=== PATIENT | female | born 1960 | race Caucasian/White ===

== ENCOUNTER 2016-09-20 17:07 | Emergency (ER) | payer OTHER ==
[~2016-09-20] VITALS: Ht 160 cm; Wt 74.8 kg
--- NOTE | 2016-09-20 19:30 | ED UPPER/LOWER EXTREMITY COMPL ---
History of Present Illness General Chief Complaint: General Adult Stated Complaint: PAIN L FOOT,H/O MS,SENT BY RODRIGO Source: patient Exam Limitations: no limitations Vital Signs & Intake/Output Vital Signs & Intake/Output Vital Signs Date Time Temp Pulse Resp B/P Pulse O2 O2 Flow FiO2 Ox Delivery Rate 09/203 96.9 61 20 141/67 92 Room Air 09/20 2057 96 09/20 2057 97.6 69 20 134/65 96 Room Air 09/20 1715 98.4 82 20 145/85 96 Room Air ED Intake and Output 09/21 0000 09/20 1200 Intake Total 1000 Output Total Balance 1000 Intake, IV 1000 Patient 165 lb Weight Allergies Coded Allergies: Sulfa (Sulfonamide Antibiotics) (Mild, RASH 09/20/16) Reconcile Medications Amantadine HCl (Amantadine) 100 MG CAPSULE 1 CAP PO BID FATIGUE (Reported) Ascorbic Acid (Vitamin C) 1,000 MG TABLET 1 TAB PO DAILY SUPPLEMENT (Reported ) Baclofen 10 MG TABLET 1 TAB PO 4XDAILY MUSCLE RELAXER (Reported) Biotin (Hard Nails) 2,500 MCG CAPSULE 5,000 MCG PO DAILY SUPPLEMENT (Reported ) Calcium Carb/Magnesium Hydrox (Gnp Antacid Chewable Tablet) (Unknown Strength) TAB.CHEW (Unknown Dose) PO BID SUPPLEMENT (Reported) Carbamazepine (Tegretol) 200 MG TABLET 1 TAB PO 5XDAILY PAIN (Reported) Cholecalciferol (Vitamin D3) (Vitamin D) 5,000 UNIT TABLET 1 TAB PO Friday SUPPLEMENT (Reported) Dimethyl Fumarate (Tecfidera) 240 MG CAPSULE.DR 1 CAP PO BID MS (Reported) Duloxetine HCl 30 MG CAPSULE.DR 1 CAP PO DAILY DEPRESSION (Reported) Fluticasone Propionate 50 MCG/ACTUATION SPRAY.SUSP 1 SPRAY NASB DAILY ALLERGIES (Reported) Gabapentin 600 MG TABLET 1 TAB PO 6XDAILY PAIN (Reported) [place]-3 Fatty Acids (Super Twin Epa-Dha) (Unknown Strength) CAPSULE (Unknown Dose) PO DAILY SUPPLEMENT (Reported) Oxycodone HCl 5 MG TABLET 1 TAB PO BID PAIN (Reported) Thiamine HCl (B-1) 100 MG TABLET 1 TAB PO DAILY SUPPLEMENT (Reported) Topiramate 25 MG TABLET 1 TAB PO 4XDAILY PAIN (Reported) Triage Note: TRIAGE: PT SENT TO ER BY DR MIGUEL FOR PAIN IN L FOOT/ANKLE. HAS PAIN CHRONIC/CONSTANT X YEARS BUT HAS BEEN WORSE SINCE FRIDAY. PMHX INCLUDES MS. TAKING SCHEDULED PAIN MEDS PRESCRIBED WITH SOME RELIEF NOTED. Triage Nurses Notes Reviewed? yes Onset: Gradual Duration: day(s): Timing: recent history Severity: moderate Pain/Injury Location: Left: Leg. Method of Injury: "I have MS." Modifying Factors: Improves With: pain medication. Associated Symptoms: left leg shooting pain for the past several days HPI: 56-year-old woman with a history of MS presents with left leg shooting pain consistent with a multiple sclerosis flare. She was seen by Dr. Miguel who referred her to the emergency department for Solu-Medrol infusion. She notes the pain is shooting, sharp and has been fluctuating for the past several days. She has no fever or chill swelling dizziness. She is otherwise well. Past History Travel History Traveled to [place] past 21 day No Medical History Any Pertinent Medical History? 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 No Review of Systems Review of Systems Constitutional: Reports: no symptoms. EENTM: Reports: no symptoms. Respiratory: Reports: no symptoms. Cardiovascular: Reports: no symptoms. Gastrointestinal/Abdominal: Reports: no symptoms. Genitourinary: Reports: no symptoms. Musculoskeletal: Reports: no symptoms. Skin: Reports: no symptoms. Neurological/Psychological: Reports: no symptoms. Hematologic/Endocrine: Reports: no symptoms. Immunological: Reports: no symptoms. All Other Systems: Reviewed and Negative Physical Exam Physical Exam General Appearance: well developed/nourished, mild distress Head: atraumatic Eyes: Bilateral: normal appearance. Ears, Nose, Throat: normal pharynx, normal ENT inspection, hearing grossly normal Neck: normal inspection, supple Cardiovascular/Respiratory: regular rate/rhythm Back: normal inspection Leg Left: patient with subjective sharp stabbing pain in the left lateral aspect of her left leg. She notes decreased sensation in her right leg which is at her baseline. Strength is 4 out of 5 in the right leg. 5 out of 5 in the left leg. There is no edema in bilateral lower extremities. DTRs are 1+ symmetrical at the patella bilaterally. Skin: intact, normal color, warm/dry Lymphatic: no anterior cervical sebas Progress Differential Diagnosis: MS flare versus neuropathy versus other Plan of Care: see below Departure Departure Disposition: HOME OR SELF CARE Condition: Stable Clinical Impression Primary Impression: Multiple sclerosis Secondary Impressions: Left leg pain Referrals: MARILOU SCHWARTZ,TANNA Hay (PCP/Family) Departure Forms: Customer Survey General Discharge Information Comments discussed with dr. miguel who suggested solumedrol 1gm iv x 1.... she received this medication, along with pain meds, zofran. she was stable at discharge and will follow up with dr. enriquez by email later today and will see him in the office on friday.
[2016-09-20] MEDS ORDERED: OXYCODONE HCL5 M1 PO (21:25)
[2016-09-20] MEDS ORDERED: BACLOFEN10 M1 PO (21:26)
[2016-09-20] MEDS ORDERED: FLUTICASONE PRO16 GM NASB (21:26)
[2016-09-20] MEDS ORDERED: TEGRETOL200 M1 PO (21:26)
[2016-09-20] MEDS ORDERED: TECFIDERA240 M2 PO (21:27)
[2016-09-20] MEDS ORDERED: TOPIRAMATE25 M2 PO (21:27)
[2016-09-20] MEDS ORDERED: GABAPENTIN600 M1 PO (21:28)
[2016-09-20] MEDS ORDERED: DULOXETINE HCL30 MG PO (21:29)
[2016-09-20] MEDS ORDERED: AMANTADINE100 M1 PO (21:30)
[2016-09-20] MEDS ORDERED: VITAMIN C1000 M4 PO (21:33)
[2016-09-20] MEDS ORDERED: [UNRECOGNIZED DRUG - OTHER] PO (21:33)
[2016-09-20] MEDS ORDERED: B-1100 MG PO (21:34)
[2016-09-20] MEDS ORDERED: VITAMIN D5000 UNIT PO (21:35)
[2016-09-20] MEDS ORDERED: SUPER TWIN EP1250 MG PO (21:36)
[2016-09-20] MEDS ORDERED: HARD NAILS2500 MCG PO (21:36)
[2016-09-20 22:43] VITALS: BP 141/67
[2016-09-21] MEDS ORDERED: DICLOFENAC POTA50 M1 PO (17:40)
[2016-09-21] MEDS ORDERED: OXYCODONE HCL5 M1 PO (17:40)
== END 2016-09-21 00:09 ==
LOC: ERH 17:07
DX: G35 Multiple sclerosis (principal); M79.605 Pain in left leg
CPT/HCPCS: 96365; 96366; 96372; 96375; J1040; J1885; J2405; J7060

== ENCOUNTER 2016-09-21 13:52 | Emergency (ER) | payer OTHER ==
[~2016-09-21] VITALS: Ht 160 cm; Wt 74.8 kg
[~2016-09-21 13:52] MED LIST: AMANTADINE100 M1 PO; B-1100 MG PO; BACLOFEN10 M1 PO; DULOXETINE HCL30 MG PO; FLUTICASONE PRO16 GM NASB; GABAPENTIN600 M1 PO; HARD NAILS2500 MCG PO; OXYCODONE HCL5 M1 PO; SUPER TWIN EP1250 MG PO; TECFIDERA240 M2 PO; TEGRETOL200 M1 PO; TOPIRAMATE25 M2 PO; VITAMIN C1000 M4 PO; VITAMIN D5000 UNIT PO; [UNRECOGNIZED DRUG - OTHER] PO
--- NOTE | 2016-09-21 14:37 | ED GENERAL ADULT ---
See Addendum History of Present Illness General Chief Complaint: General Adult Stated Complaint: MS FLARE UP,HERE LAST NIGHT FOR SAME,NEEDS IV PRED Source: patient Exam Limitations: no limitations Vital Signs & Intake/Output Vital Signs & Intake/Output Vital Signs Date Time Temp Pulse Resp B/P Pulse O2 O2 Flow FiO2 Ox Delivery Rate 09/21 1400 98.1 77 20 130/84 96 Room Air Room Air Allergies Coded Allergies: Sulfa (Sulfonamide Antibiotics) (Mild, RASH 09/20/16) Reconcile Medications Amantadine HCl (Amantadine) 100 MG CAPSULE 1 CAP PO BID FATIGUE (Reported) Ascorbic Acid (Vitamin C) 1,000 MG TABLET 1 TAB PO DAILY SUPPLEMENT (Reported ) Baclofen 10 MG TABLET 1 TAB PO 4XDAILY MUSCLE RELAXER (Reported) Biotin (Hard Nails) 2,500 MCG CAPSULE 5,000 MCG PO DAILY SUPPLEMENT (Reported ) Calcium Carb/Magnesium Hydrox (Gnp Antacid Chewable Tablet) (Unknown Strength) TAB.CHEW (Unknown Dose) PO BID SUPPLEMENT (Reported) Carbamazepine (Tegretol) 200 MG TABLET 1 TAB PO 5XDAILY PAIN (Reported) Cholecalciferol (Vitamin D3) (Vitamin D) 5,000 UNIT TABLET 1 TAB PO Friday SUPPLEMENT (Reported) Dimethyl Fumarate (Tecfidera) 240 MG CAPSULE.DR 1 CAP PO BID MS (Reported) Duloxetine HCl 30 MG CAPSULE.DR 1 CAP PO DAILY DEPRESSION (Reported) Fluticasone Propionate 50 MCG/ACTUATION SPRAY.SUSP 1 SPRAY NASB DAILY ALLERGIES (Reported) Gabapentin 600 MG TABLET 1 TAB PO 6XDAILY PAIN (Reported) [place]-3 Fatty Acids (Super Twin Epa-Dha) (Unknown Strength) CAPSULE (Unknown Dose) PO DAILY SUPPLEMENT (Reported) Oxycodone HCl 5 MG TABLET 1 TAB PO BID PAIN (Reported) Thiamine HCl (B-1) 100 MG TABLET 1 TAB PO DAILY SUPPLEMENT (Reported) Topiramate 25 MG TABLET 1 TAB PO 4XDAILY PAIN (Reported) Triage Note: PT TO ED FOR CONTINUING LEFT FOOT PAIN "MS EXACERBATION". SEEN LAST NIGHT BY DR BLAKE GIVEN IV STERIOD INFUSION, AND PAIN MEDS AND DC HOME". "ONCE PAIN MEDS WORE OFF,THE PAIN CAME BACK". Triage Nurses Notes Reviewed? yes HPI: Patient presents for evaluation of severe constant lupus pain that began over the past few days. The pain has been unresponsive to her usual pain medications. She was evaluated in the emergency department yesterday and treated with IV Solu-Medrol Zofran and ketorolac. She has been in contact with her lupus doctor, Jordan Lambert MD, who asked her to come to the emergency department for retreatment. The pains are aching and get worse with movement. Past History Travel History Traveled to [place] past 21 day No Medical History Any Pertinent Medical History? 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 No Review of Systems Review of Systems Constitutional: Reports: no symptoms. EENTM: Reports: no symptoms. Respiratory: Reports: no symptoms. Cardiovascular: Reports: no symptoms. GI: Reports: no symptoms. Genitourinary: Reports: no symptoms. Musculoskeletal: Reports: see HPI. Skin: Reports: no symptoms. Neurological/Psychological: Reports: no symptoms. Hematologic/Endocrine: Reports: no symptoms. Immunologic/Allergic: Reports: no symptoms. All Other Systems: Reviewed and Negative Physical Exam Physical Exam General Appearance: see below Comments: Gen.: Well-nourished, well-developed, no acute respiratory distress. Head: Normocephalic, atraumatic. Eyes: Normal inspection bilaterally Ears: Normal inspection bilaterally Nose: Normal inspection Throat/mouth : Moist mucosa Neck: Supple, full range of motion, no goiter Heart: Regular rate and rhythm, no murmurs rubs or gallops Lungs: Clear to auscultation bilaterally with normal air entry Chest: Nontender Back: Normal range of motion Abdomen: Soft, nontender, nondistended, normal bowel sounds Extremities: Diffuse tenderness particularly with range of motion. Neurologic: Cranial nerves grossly intact, speech is clear Skin: warm and dry Psychiatric: Calm, cooperative, no apparent delusions or hallucinations Core Measures ACS in differential dx? No CVA/TIA Diagnosis: No Severe Sepsis Present: No Septic Shock Present: No Progress Differential Diagnoses I considered the following diagnoses in my evaluation of the patient: MS flare Plan of Care: Current Medications Sig/Chepe Start time Last Medication Dose Stop Time Status Admin Methylprednisolone 1,000 MG ONCE ONE 09/21 1445 AC (Solu Medrol) 09/21 1644 Dextrose/Water 1,000 ML (D5W 1000) Initial ED EKG: none Comments: 09/21/2016 5:36:54 PM patient's Solu-Medrol infusion is nearing completion. Departure Departure Disposition: HOME OR SELF CARE Condition: Stable Clinical Impression Primary Impression: Multiple sclerosis exacerbation Referrals: MARILOU SCHWARTZ,TANNA Hay (PCP/Family) Additional Instructions: Discontinue the ibuprofen and begin taking Voltaren. Increase the oxycodone dose to 2 mg every 8 hours. Return if necessary tomorrow for another dose of the Solu-Medrol. Follow-up with Jordan Lambert MD on Friday. Notify your primary care doctor of this emergency department visit and treatment plan. Return if any concerns or sudden worsening. Thank you for choosing the [facility] Emergency Department for your care. It was a pleasure to serve you today. Dakota Mcnair M.D. [facility] Departure Forms: Customer Survey General Discharge Information Prescriptions: Current Visit Scripts Diclofenac Potassium 1 TAB PO TID PRN PAIN #30 TAB Oxycodone HCl 2 TAB PO Q6P PRN pain #20 TAB Critical Care Note Critical Care Note Critical Care Time: non-applicable
[2016-09-21] MEDS ORDERED: DICLOFENAC POTA50 M1 PO (17:40)
[2016-09-21] MEDS ORDERED: OXYCODONE HCL5 M1 PO (17:40)
[2016-09-21 19:23] VITALS: BP 104/56
== END 2016-09-21 19:26 ==
LOC: ERH 13:52
DX: G35 Multiple sclerosis (principal)
CPT/HCPCS: 96374; 96375; 96376; J1040; J1885; J2405; J7060

== ENCOUNTER 2016-09-22 11:45 | Emergency (ER) | payer OTHER ==
[~2016-09-22] VITALS: Ht 160 cm; Wt 74.8 kg
[~2016-09-22 11:45] MED LIST changes: +DICLOFENAC POTA50 M1 PO
--- NOTE | 2016-09-22 13:25 | ED GENERAL ADULT ---
History of Present Illness General Chief Complaint: General Adult Stated Complaint: PER ,"SHE IS HERE FOR A PREDNISOZE DRIP" Source: patient, family, old records Exam Limitations: no limitations Vital Signs & Intake/Output Vital Signs & Intake/Output Vital Signs Date Time Temp Pulse Resp B/P Pulse O2 O2 Flow FiO2 Ox Delivery Rate 09/22 1502 69 18 119/59 99 Room Air 09/22 1149 97.0 68 20 130/78 96 Room Air Allergies Coded Allergies: Sulfa (Sulfonamide Antibiotics) (Mild, RASH 09/20/16) Reconcile Medications Amantadine HCl (Amantadine) 100 MG CAPSULE 1 CAP PO BID FATIGUE (Reported) Ascorbic Acid (Vitamin C) 1,000 MG TABLET 1 TAB PO DAILY SUPPLEMENT (Reported ) Baclofen 10 MG TABLET 1 TAB PO 4XDAILY MUSCLE RELAXER (Reported) Biotin (Hard Nails) 2,500 MCG CAPSULE 5,000 MCG PO DAILY SUPPLEMENT (Reported ) Calcium Carb/Magnesium Hydrox (Gnp Antacid Chewable Tablet) (Unknown Strength) TAB.CHEW (Unknown Dose) PO BID SUPPLEMENT (Reported) Carbamazepine (Tegretol) 200 MG TABLET 1 TAB PO 5XDAILY PAIN (Reported) Cholecalciferol (Vitamin D3) (Vitamin D) 5,000 UNIT TABLET 1 TAB PO Friday SUPPLEMENT (Reported) Diclofenac Potassium 50 MG TABLET 1 TAB PO TID PRN PAIN Dimethyl Fumarate (Tecfidera) 240 MG CAPSULE.DR 1 CAP PO BID MS (Reported) Duloxetine HCl 30 MG CAPSULE.DR 1 CAP PO DAILY DEPRESSION (Reported) Fluticasone Propionate 50 MCG/ACTUATION SPRAY.SUSP 1 SPRAY NASB DAILY ALLERGIES (Reported) Gabapentin 600 MG TABLET 1 TAB PO 6XDAILY PAIN (Reported) [place]-3 Fatty Acids (Super Twin Epa-Dha) (Unknown Strength) CAPSULE (Unknown Dose) PO DAILY SUPPLEMENT (Reported) Oxycodone HCl 5 MG TABLET 1 TAB PO BID PAIN (Reported) Oxycodone HCl 5 MG TABLET 2 TAB PO Q6P PRN pain Thiamine HCl (B-1) 100 MG TABLET 1 TAB PO DAILY SUPPLEMENT (Reported) Topiramate 25 MG TABLET 1 TAB PO 4XDAILY PAIN (Reported) Triage Note: PT C/O MS EXACERBATION. STATES NERVE PAIN IN LEFT FOOT. SEEN HERE YESTERDAY FOR SAME PROBLEM Triage Nurses Notes Reviewed? yes HPI: Patient presents for Solu-Medrol infusion for multiple sclerosis exacerbation. Patient has been suffering from a multiple sclerosis exacerbation for number of days now, requiring IV Solu-Medrol and additional pain control. Patient states that her pains are typically in the lower extremities but she does get a more diffuse pain secondary to multiple sclerosis. It is a severe aching pain that gets worse with movement. The patient's pain has been constant but fluctuates in intensity. Nothing seems to make her feel better aside from steroids and IV pain medications. Past History Travel History Traveled to [place] past 21 day No Medical History Any Pertinent Medical History? 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 No Review of Systems Review of Systems Constitutional: Reports: no symptoms. EENTM: Reports: no symptoms. Respiratory: Reports: no symptoms. Cardiovascular: Reports: no symptoms. GI: Reports: no symptoms. Genitourinary: Reports: no symptoms. Musculoskeletal: Reports: see HPI. Skin: Reports: no symptoms. Neurological/Psychological: Reports: no symptoms. Hematologic/Endocrine: Reports: no symptoms. Immunologic/Allergic: Reports: no symptoms. All Other Systems: Reviewed and Negative Physical Exam Physical Exam General Appearance: SEE BELOW Comments: Gen.: Well-nourished, well-developed, no acute respiratory distress. Moderately uncomfortable appearing. Head: Normocephalic, atraumatic. Eyes: Normal inspection bilaterally Ears: Normal inspection bilaterally Nose: Normal inspection Throat/mouth : Moist mucosa Neck: Supple, full range of motion, no goiter Heart: Regular rate and rhythm, no murmurs rubs or gallops Lungs: Clear to auscultation bilaterally with normal air entry Chest: Nontender Back: Normal range of motion Abdomen: Soft, nontender, nondistended, normal bowel sounds Extremities: Normal range of motion grossly, equal radial pulses, no cyanosis clubbing or edema Neurologic: Cranial nerves grossly intact, speech is clear Skin: warm and dry Psychiatric: Calm, cooperative, no apparent delusions or hallucinations Core Measures ACS in differential dx? No CVA/TIA Diagnosis: No Severe Sepsis Present: No Septic Shock Present: No Progress Differential Diagnoses I considered the following diagnoses in my evaluation of the patient: Multiple sclerosis Plan of Care: Current Medications Sig/Chepe Start time Last Medication Dose Stop Time Status Admin Morphine Sulfate 4 MG ONCE ONE 09/22 1644 UNVr (Morphine) 09/22 1645 Initial ED EKG: none Comments: 09/22/2016 3:48:41 PM patient is feeling better and declined any further pain medication. She does appear much more comfortable awake and conversant compared with her prior emergency department visit. Departure Departure Disposition: HOME OR SELF CARE Condition: Stable Clinical Impression Primary Impression: Exacerbation of systemic lupus Referrals: MARILOU SCHWARTZ,TANNA Hay (PCP/Family) Additional Instructions: Follow-up with Dr. miguel tomorrow otherwise return to the emergency department for continued treatment. Return immediately if any concerns or sudden worsening. Departure Forms: Customer Survey General Discharge Information Critical Care Note Critical Care Note Critical Care Time: non-applicable
[2016-09-22 17:38] VITALS: BP 136/65
== END 2016-09-22 17:51 ==
LOC: ERH 11:45
DX: M32.9 Systemic lupus erythematosus, unspecified (principal)
CPT/HCPCS: 96374; 96375; 96376; J1040; J1885; J2405; J7060